=== PATIENT | female | born 1970 | race American Indian/Alaskan Native ===

== ENCOUNTER → 2018-06-25 09:52 | Outpatient (CLI) | payer OTHER, SELFPAY ==
[2018-06-25 10:37] LABS: Add Manual Diff / Slide Review NO; Basophils Percent Auto 0.6 % (0-2); Eosinophils Percent Auto 1.3 % (2-4); Hematocrit 41.8 % (36-46); Hemoglobin 13.9 g/dL (12.0-16.0); Lymphocytes Percent Auto 18.7 % (25-40); Mean Corpuscular HGB Conc 33.1 % (30-36); Mean Corpuscular Hemoglobin 26.7 PG (26-34); Mean Corpuscular Volume 80.6 fL (80-100); Monocytes Percent Auto 6.8 % (3-14); Neutrophils Absolute Auto 6300 /uL (3000-5900); Neutrophils Percent Auto 72.6 % (50-75); Platelet Count 341 X10^3/uL (150-400); Red Blood Cell Count 5.19 X10^6/uL (4.0-5.2); Red Cell Distribution Width 14.9 % (11.6-14.8); White Blood Cell Count 8.6 X10^3/uL (4.5-11.0)
[2018-06-25 10:58] LABS: Alanine Aminotransferase 30 IU/L (9-52); Albumin Globulin Ratio 1.5 (1.0-2.8); Alkaline Phosphatase 66 U/L (38-126); Amylase 40 U/L (30-110); Aspartate Aminotransferase 22 IU/L (14-36); BUN Creatinine Ratio 15.7 (6-22); Bilirubin Total 0.3 mg/dL (0.2-1.3); Blood Urea Nitrogen 11 mg/dL (7-17); Calcium 9.1 mg/dL (8.4-10.2); Carbon Dioxide 31 mmol/L (22-32); Chloride 105 mmol/L (98-107); Estimated Glomerular Filt Rate > 60.0 mL/min (>60); Globulin 2.6 g/dL (1.7-4.1); Glucose 88 mg/dL (70-100); HEMOLYSIS < 15 (0-50); Lipase 40 U/L (23-300); Potassium 4.8 mmol/L (3.4-5.1); Sodium 142 mmol/L (137-145); Total Protein 6.6 g/dL (6.3-8.2)
[2018-07-06 13:21] LABS: Urea Breath Test >18YRS NOT DETECTED
== END ==
PROVIDERS: PCP Family Medicine; Visit Provider Family Medicine
DX: R10.12 Left upper quadrant pain (principal); R10.13 Epigastric pain
CPT/HCPCS: 36415; 80053; 82150; 83013; 83690; 85025

== ENCOUNTER 2020-08-07 09:43 | Emergency (ER) | payer OTHER, SELFPAY ==
[2020-08-07] VITALS (7 sets, daily range): BP systolic 116–132; BP diastolic 56–67; PULSE 73–89; RESP 16–27; TEMP 36.6; O2SAT 98–100; BMI 44.1
--- NOTE | 2020-08-07 09:45 | ED.ABDPAIN ---
HPI - Abdominal Pain General Chief Complaint: Abdominal Pain Stated Complaint: stomach pain worsening lastnight/ no sleep Time Seen by Provider: 08/07/20 09:45 Source: patient Mode of arrival: Ambulatory Limitations: no limitations History of Present Illness HPI narrative: 49-year-old female former smoker with history of anxiety presents with a chief complaint of 3-4 days of worsening epigastric and right upper quadrant pain. She states it is significantly worse with food, drink or motion. She states it reminds her of when her gallbladder was ?acting up, prior to having it surgically removed. She denies any alcohol use. She's had no fever or chills and denies any injury, trauma, or overuse. She admits to odd urinary symptoms including the sudden urge to void with large volume or urine production. She denies radiation of her pain. She's had nausea, but denies vomiting, constipation or diarrhea. She last had tried to eat just prior to arrival, but wasn't able to have much. MD complaint: abdominal pain Onset (ago): day(s) Pain Consistency: constant Location: RUQ and epigastric Severity: severe Severity scale (1-10): 7 Quality: cramping, stabbing and aching Radiation: none Relieving factors: nothing Exacerbating factors: eating and movement Associated symptoms: nausea Related Data Home Medications Medication Instructions Recorded Confirmed lorazepam 1 mg PO BID PRN 08/07/20 08/07/20 Previous Rx's Medication Instructions Recorded hydrocodone-acetaminophen 1 tab PO Q4-6H PRN #10 tab 08/07/20 ondansetron 4 mg PO TID-QID PRN #10 tab 08/07/20 Allergies Allergy/AdvReac Type Severity Reaction Status Date / Time No Known Drug Allergies Allergy Verified 08/07/20 09:51 Review of Systems Constitutional Constitutional: Denies chills, Denies fatigue, Denies fever(s), Denies frequent falls, Denies lethargy and Denies weakness Eyes Eyes: Denies change in vision, Denies eye discharge, Denies irritation and Denies loss of vision ENT Ears, Nose, Mouth, and Throat: Denies change in voice, Denies dizziness, Denies neck pain, Denies sore throat and Denies throat swelling Cardiovascular Cardiovascular: Denies chest pain, Denies irregular heart rhythm, Denies lightheadedness, Denies palpitations, Denies dyspnea, Denies dyspnea on exertion and Denies orthopnea Respiratory Respiratory: Denies cough, Denies dyspnea, Denies dyspnea on exertion and Denies wheezing Gastrointestinal Gastrointestinal: Denies abdominal pain, Denies change in bowel habits, Denies diarrhea, Denies nausea and Denies vomiting Musculoskeletal Musculoskeletal: Denies neck pain and Denies numbness Integumentary/Breasts Skin/Breast: Denies pruritus, Denies erythema, Denies rash and Denies wounds Neurologic Neurologic: Denies behavioral changes, Denies confusion, Denies dizziness, Denies frequent falls, Denies loss of vision, Denies numbness and Denies weakness Psychiatric Psychiatric: Denies anxiety, Denies behavioral changes, Denies confusion, Denies depression, Denies homicidal ideation and Denies suicidal ideation Endocrine Endocrine: Denies fatigue, Denies flushing and Denies palpitations Hematologic/Lymphatic Hematologic/Lymphatic: Denies easy bruising Allergic/Immunologic Allergic/Immunologic: Denies urticaria, Denies throat swelling and Denies wheezing Patient History Social History Smoking Status: Former smoker Exam Narrative Exam Narrative: GENERAL: [49] year old patient appears stated age. Well-nourished, well-developed patient, in moderate distress. Anxious, clearly in pain, tearful, clutching her right upper abdomen HEAD: Atraumatic. Normocephalic. EYES: Pupils equal round and reactive. Extraocular motions intact. No scleral icterus. No injection or drainage. ENT: Nose without bleeding, purulent drainage. Throat without erythema, tonsillar hypertrophy or exudate. Airway patent. NECK: Trachea midline. Non tender CARDIOVASCULAR: Regular rate and rhythm without murmurs, gallops, or rubs. RESPIRATORY: Clear to auscultation. Breath sounds equal bilaterally. No wheezes, rales, or rhonchi. GASTROINTESTINAL: Abdomen soft, severe tenderness to palpation in the epigastric right upper quadrant, nondistended. EXTREMITIES: No edema or joint tenderness. BACK: Nontender without deformity or crepitance. No flank tenderness. NEURO: AOx3. SKIN: No rash or erythema of visible areas Initial Vital Signs Initial Vital Signs: Vital Signs Temperature 97.8 F 08/07/20 09:51 Pulse Rate 77 08/07/20 09:51 Respiratory Rate 20 08/07/20 09:51 Blood Pressure 130/65 10/27/20 09:51 Pulse Oximetry 99 10/27/20 09:51 Const General: cooperative and well developed Nutritional Appearance: well nourished [facility] Head: normocephalic and atraumatic Ears: external ears normal and TM's normal bilaterally Nose: external nose normal and No nasal discharge Face and sinus: sinuses nontender, face symmetric, no sinus tenderness and No dry mucous membranes Mouth: oral mucosae normal and moist mucous membranes Teeth and gingiva: dentition normal Throat: tonsils normal and uvula midline Eyes General: appearance normal, both eyes and all related structures Eyelids: eyelids normal Conjunctivae: conjunctivae normal Sclera: sclerae normal Pupils: PERRL EOM: EOM intact bilaterally Neck Neck: normal visual inspection, trachea midline, No lymphadenopathy, No midline deformity and No JVD Lymphatic: No lymphedema Chest Chest: normal inspection of the chest Resp Effort & Inspection: normal respiratory effort, able to speak in complete sentences, no respiratory distress and no use of accessory muscles Auscultation: clear to auscultation bilaterally, no rales, no rhonchi and no wheezes Cardio Rate: regular rate Rhythm: regular rhythm Heart Sounds: no click, no gallops, no murmurs and no rubs Pulses: normal peripheral pulses GI Inspection: non-distended Palpation: soft, no hepatosplenomegaly, No guarding, No pulsatile mass and No tender Auscultation: normal bowel sounds Back/Spine/Pelvis Back: No CVA tenderness Cervical Spine: cervical ROM normal and No pain with cervical ROM Thoracic/Lumbar Spine: thoracic and lumbar spine normal to inspection Skin General: no rashes or lesions noted, No jaundice and No petechiae Neuro General: patient alert, patient oriented x3, gait normal and no focal motor deficits Speech: speech normal Extrem General: full ROM, no clubbing, cyanosis or edema, no pedal edema and no calf tenderness Psych Appearance: well kempt Mental Status: mental status grossly normal Attitude: cooperative Thought Content: normal and suicidality Judgment: judgment good Course Orders Ordered: ED Orders 08/07/20 09:53 US abdomen limited Stat 08/07/20 10:00 Complete Blood Count AUTO DIFF Stat Comprehensive Metabolic Panel Stat Lactate (Lactic Acid) Stat Lipase Stat 08/07/20 11:20 CT abdomen pelvis w con Stat Discontinued Medications Al Hydrox/Mg Hydrox/Simethicone 20 ml/ Lidocaine HCl 15 ml 0 ml PO NOW ONE Stop: 08/07/20 12:09 Last Admin: 08/07/20 12:14 Dose: 35 ml Documented by: RANDY Hydromorphone HCl (Dilaudid) 0.5 mg IV NOW ONE Stop: 08/07/20 09:53 Last Admin: 08/07/20 10:01 Dose: 0.5 mg Documented by: RANDY Hydromorphone HCl (Dilaudid) 0.5 mg IV NOW ONE Stop: 08/07/20 11:18 Last Admin: 08/07/20 11:20 Dose: 0.5 mg Documented by: RANDY Sodium Chloride (Normal Saline 0.9%) 1,000 mls @ 1,000 mls/hr IV BOLUS ONE Stop: 08/07/20 10:51 Last Infusion: 08/07/20 11:06 Dose: 0 mls/hr Documented by: Admin: 08/07/20 10:01 Dose: 1,000 mls/hr Documented by: RANDY Pantoprazole Sodium (Protonix) 40 mg IV NOW ONE Stop: 08/07/20 09:53 Last Admin: 08/07/20 10:01 Dose: 40 mg Documented by: RANDY Reevaluation(s) Reevaluation #1: near complete resolution of symptoms after GI cocktail. Vital Signs Vital signs: Vital Signs - 8 hr 08/07/20 09:51 08/07/20 10:59 08/07/20 11:00 Temperature 97.8 F Pulse Rate 77 89 85 Respiratory Rate 20 27 H 26 H Blood Pressure 130/65 Pulse Oximetry 99 100 100 08/07/20 11:15 08/07/20 11:30 08/07/20 12:00 Temperature Pulse Rate 86 83 76 Respiratory Rate 16 25 H 24 Blood Pressure 132/60 116/58 L 116/67 Pulse Oximetry 100 99 99 08/07/20 12:30 Temperature Pulse Rate 73 Respiratory Rate 18 Blood Pressure 117/56 L Pulse Oximetry 98 MDM - Abdominal Pain Lab Data Result diagrams: 08/07/20 10:00 08/07/20 10:00 Labs: Lab Results 08/07/20 08/07/20 08/07/20 Range/Units 10:00 10:00 10:00 WBC 8.3 (4.5-11.0) X10^3/uL RBC 5.03 (4.0-5.2) X10^6/uL Hgb 12.9 (12.0-16.0) g/dL Hct 40.3 (36-46) % MCV 80.0 (80-100) fL MCH 25.6 L (26-34) PG MCHC 32.0 (30-36) % RDW 15.2 H (11.6-14.8) % Plt Count 312 (150-400) X10^3/uL Neut % (Auto) 65.1 (50-75) % Lymph % (Auto) 25.9 (25-40) % [place] % (Auto) 6.9 (3-14) % Eos % (Auto) 1.6 L (2-4) % Baso % (Auto) 0.5 (0-2) % Neut # (Auto) 5400 (1337-8133) /uL Lymph # (Auto) 2100 (1803-2116) /uL [place] # (Auto) 600 (0-900) /uL Eos # (Auto) 100 (0-450) /uL Baso # (Auto) 0 (0-100) /uL Sodium 138 (137-145) mmol/L Potassium 4.3 (3.4-5.1) mmol/L Chloride 103 (98-107) mmol/L Carbon Dioxide 33 H (22-32) mmol/L BUN 12 (7-17) mg/dL Creatinine 0.67 (0.52-1.04) mg/dL Estimated GFR > 60.0 (>60) mL/min BUN/Creatinine Ratio 17.9 (6-22) Glucose 106 H (70-100) mg/dL Lactate 1.0 (0.7-2.1) mmol/L Calcium 8.9 (8.4-10.2) mg/dL Total Bilirubin 0.4 (0.2-1.3) mg/dL AST 43 H (14-36) IU/L ALT 60 H (<35) IU/L Alkaline Phosphatase 86 (38-126) U/L Total Protein 7.0 (6.3-8.2) g/dL Albumin 4.0 (3.5-5.0) g/dL Globulin 3.0 (1.7-4.1) g/dL Albumin/Globulin Ratio 1.3 (1.0-2.8) Lipase 61 (23-300) U/L Point of care testing: Urine Dip Bedside Urine Glucose Negative Bedside Urine Bilirubin - Negative Bedside Urine Ketone - Negative Urine Specific [place] 1.010 Bedside Urine Occult Blood - Negative Bedside Urine pH 6 Bedside Urine Protein - Negative Bedside Urine Urobilinogen - Negative Bedside Urine Nitrite - Negative Bedside Urine Leukocytes - Negative Esterase Imaging Data US - abdomen: Radiologist's Impression: [address] [address] Ultrasound Report Signed Patient: Aliza Galdamez GMR#: [id number] : 1970Acct:[id number] Age/Sex: 49 / FDate of Service: 08/07/20 Loc: ED Accession Number: [id number] Procedure: US abdomen limited Ordering Provider: Eric Ma D.O. PROCEDURE: US ABDOMEN LIMITED INDICATIONS: RUQ/EPIGASTRIC PAIN TECHNIQUE: Real-time focused scanning was performed of the abdomen, with image documentation. COMPARISON: [facility], US, ABDOMEN SONOGRAM, 09/10/2014, 14:10. [facility], US, ABDOMEN SONOGRAM, 01/08/2011, 0:57. [facility], CT, CT ABDOMEN PELVIS WITH CONTRAST, 01/27/2019, 5:53. FINDINGS: The liver demonstrates normal size. The liver demonstrates generalized increased echogenicity. This decreases ultrasound sensitivity for detection of hepatic masses. The gallbladder has been removed. There is no biliary dilatation, the common bile duct measures 7 mm. No significant pancreatic abnormality is seen on these images. The visualized right kidney is unremarkable, with note made a simple cyst measuring 11 mm along the superior/anterior aspect. IMPRESSION: No imaging explanation is found for this patient's presenting symptoms. Status post cholecystectomy, without biliary dilatation. The liver demonstrates increased echogenicity. This finding is nonspecific, yet it is most commonly attributed to fatty infiltration. Dictated by: Demetrius Eaton M.D. on 08/07/2020 at 9:38 Approved by: Demetrius Eaton M.D. on 08/07/2020 at 9:41 CT scan - abdomen/pelvis: Radiologist's Impression: [address] [address] [address] Scan Report Signed Patient: Aliza Galdamez GMR#: [id number] : 1970Acct:[id number] Age/Sex: 49 / FDate of Service: 08/07/20 Loc: ED Accession Number: [id number] Procedure: CT abdomen pelvis w con Ordering Provider: Eric Ma D.O. PROCEDURE: CT ABDOMEN PELVIS W CON INDICATIONS: severe right sided pain TECHNIQUE: After the administration of intravenous contrast, 5 mm thick sections acquired from the diaphragm to the symphysis. 5 mm coronal and sagittal reformats were acquired. For radiation dose reduction, the following was used: automated exposure control, adjustment of mA and/or kV according to patient size. COMPARISON: [facility], CT, CT ABDOMEN PELVIS WITH CONTRAST, 01/27/2019, 5:53. FINDINGS: Image quality: Excellent. ABDOMEN: Lung bases: Lung bases are clear. Heart size is normal. Solid organs: Liver is normal in size and enhancement. Gallbladder is surgically absent. Biliary system is non dilated. Pancreas enhances normally. 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 Spleen is normal in size and enhancement. No adrenal nodules. Kidneys demonstrate normal size and enhancement, without hydronephrosis. Nonobstructing 3 mm calculus within the inferior pole left kidney is unchanged. No change in right superior pole renal cyst. Peritoneum and bowel: Bowel loops demonstrate normal wall thickness and caliber. No free fluid or air. Nodes and vessels: No retroperitoneal or mesenteric adenopathy by size criteria. Aorta and inferior vena cava are normal in size. Miscellaneous: No ventral hernias. PELVIS: Genitourinary: Bladder wall thickness is normal. Left ovarian cyst has increased in size, currently measuring 66 mm. Miscellaneous: No inguinal hernias or adenopathy. Bones: No suspicious bony lesions. No vertebral body compression fractures. IMPRESSION: 1. No acute process. 2. Appendix is not seen no evidence of appendicitis. 3. Nonobstructing left renal calculus. 4. Increasing left ovarian cystic focus, possibly indicating low-grade neoplasm. Nonemergent outpatient follow-up gynecological consultation and pelvic ultrasound are recommended. Dictated by: Maria E Spencer M.D. on 08/07/2020 at 11:27 Approved by: Maria E Spencer M.D. on 08/07/2020 at 11:33 [facility] Narrative Medical decision making narrative: Multiple etiologies for patient's symptoms considered including: [Biliary tree abnormality versus pancreatitis versus bowel obstruction versus musculoskeletal spasm and inflammation versus other] Patient's symptoms improved over duration of stay with above-stated therapies. Findings and discharge diagnosis discussed with patient/family followed by verbalization of understanding Return precautions discussed with patient/family whom verbalize understanding. Discharge Plan Departure Patient Disposition: Home Clinical Impression: Abdominal pain Qualifiers: Abdominal location: right upper quadrant Qualified Code(s): R10.11 - Right upper quadrant pain Discharge Date/Time: 08/07/20 13:01 Instructions: DI for Abdominal Pain-Adult Activity Restrictions/Additional Instructions: *You have been diagnosed with [right upper abdominal pain. Very reassuring lab work, ultrasound and CT scan. No significant abnormalities noted. Pain of this type and in this location is sometimes due to acid reflux or ulcers which would not show up on the testing we can do in the ER.] *What to do: *Take medications as directed. Prescription sent to [facility]. Please also consider over the counter acid reducers and avoid caffeine, nicotine, alcohol, fatty and spicy foods. *Follow up with your primary care provider in 2-3 days, call for an appointment. Let them know you were seen in the Emergency Department and that we ask that you be seen in follow up *Return to ER if you should have any new, worsening or concerning symptoms, such as [increasing pain, persistent vomiting, fever over 101 F or other bothersome symptoms] Prescriptions: New hydrocodone-acetaminophen 5-325 mg tablet 1 tab PO Q4-6H PRN (Reason: pain) Qty: 10 RF: 0 ondansetron 4 mg tablet,disintegrating 4 mg PO TID-QID PRN (Reason: nausea and vomiting) Qty: 10 RF: 0 No Action lorazepam 1 mg tablet 1 mg PO BID PRN (Reason: Anxiety) RF: 0
--- NOTE | 2020-08-07 09:53 | DI.US.S_ITS ---
PROCEDURE: US ABDOMEN LIMITED INDICATIONS: RUQ/EPIGASTRIC PAIN TECHNIQUE: Real-time focused scanning was performed of the abdomen, with image documentation. COMPARISON: [facility], US, ABDOMEN SONOGRAM, 09/10/2014, 14:10. [facility], US, ABDOMEN SONOGRAM, 01/08/2011, 0:57. [facility], CT, CT ABDOMEN PELVIS WITH CONTRAST, 01/27/2019, 5:53. FINDINGS: The liver demonstrates normal size. The liver demonstrates generalized increased echogenicity. This decreases ultrasound sensitivity for detection of hepatic masses. The gallbladder has been removed. There is no biliary dilatation, the common bile duct measures 7 mm. No significant pancreatic abnormality is seen on these images. The visualized right kidney is unremarkable, with note made a simple cyst measuring 11 mm along the superior/anterior aspect. IMPRESSION: No imaging explanation is found for this patient's presenting symptoms. Status post cholecystectomy, without biliary dilatation. The liver demonstrates increased echogenicity. This finding is nonspecific, yet it is most commonly attributed to fatty infiltration. Dictated by: Demetrius Eaton M.D. on 08/07/2020 at 9:38 Approved by: Demetrius Eaton M.D. on 08/07/2020 at 9:41
[2020-08-07] MEDS: PANTOPRAZOLE 40 MG VIAL IV (10:01)
[2020-08-07] MEDS: HYDROMORPHONE 0.5 MG INJ IV ×2 (10:01→11:20)
[2020-08-07] MEDS: SODIUM CHLORIDE 0.9% 1,000 ML 1000 ML IV (10:01)
[2020-08-07 10:06] LABS: Add Manual Diff / Slide Review NO; Basophils Absolute Auto 0 /uL (0-100); Basophils Percent Auto 0.5 % (0-2); Eosinophils Absolute Auto 100 /uL (0-450); Eosinophils Percent Auto 1.6 % (2-4); Hematocrit 40.3 % (36-46); Hemoglobin 12.9 g/dL (12.0-16.0); Lymphocytes Absolute Auto 2100 /uL (1100-4500); Lymphocytes Percent Auto 25.9 % (25-40); Mean Corpuscular Hemoglobin 25.6 PG (26-34); Monocytes Absolute Auto 600 /uL (0-900); Monocytes Percent Auto 6.9 % (3-14); Neutrophils Absolute Auto 5400 /uL (1500-7000); Neutrophils Percent Auto 65.1 % (50-75); Platelet Count 312 X10^3/uL (150-400); Red Blood Cell Count 5.03 X10^6/uL (4.0-5.2); Red Cell Distribution Width 15.2 % (11.6-14.8); White Blood Cell Count 8.3 X10^3/uL (4.5-11.0)
--- NOTE | 2020-08-07 10:09 | PC.NURSE ---
patient arrived tearful and in obvious discomfort having difficulty moving and positioning self on stretcher without increasing pain. States she has had this for a few days and states today is worse than the others. reports no gallbladder or appendix. NPO since 829 when she had toast and a cookie. Dilaudid given. patient states her daughter is here to give her a ride home.
[2020-08-07 10:17] LABS: Alanine Aminotransferase 60 IU/L (<35); Albumin Globulin Ratio 1.3 (1.0-2.8); Alkaline Phosphatase 86 U/L (38-126); Aspartate Aminotransferase 43 IU/L (14-36); BUN Creatinine Ratio 17.9 (6-22); Bilirubin Total 0.4 mg/dL (0.2-1.3); Blood Urea Nitrogen 12 mg/dL (7-17); Calcium 8.9 mg/dL (8.4-10.2); Carbon Dioxide 33 mmol/L (22-32); Chloride 103 mmol/L (98-107); Estimated Glomerular Filt Rate > 60.0 mL/min (>60); Glucose 106 mg/dL (70-100); HEMOLYSIS < 15 (0-50); Lipase 61 U/L (23-300); Potassium 4.3 mmol/L (3.4-5.1); Sodium 138 mmol/L (137-145)
--- NOTE | 2020-08-07 11:20 | DI.CT.S_ITS ---
PROCEDURE: CT ABDOMEN PELVIS W CON INDICATIONS: severe right sided pain TECHNIQUE: After the administration of intravenous contrast, 5 mm thick sections acquired from the diaphragm to the symphysis. 5 mm coronal and sagittal reformats were acquired. For radiation dose reduction, the following was used: automated exposure control, adjustment of mA and/or kV according to patient size. COMPARISON: [facility], CT, CT ABDOMEN PELVIS WITH CONTRAST, 01/27/2019, 5:53. FINDINGS: Image quality: Excellent. ABDOMEN: Lung bases: Lung bases are clear. Heart size is normal. Solid organs: Liver is normal in size and enhancement. Gallbladder is surgically absent. Biliary system is non dilated. Pancreas enhances normally. 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 Spleen is normal in size and enhancement. No adrenal nodules. Kidneys demonstrate normal size and enhancement, without hydronephrosis. Nonobstructing 3 mm calculus within the inferior pole left kidney is unchanged. No change in right superior pole renal cyst. Peritoneum and bowel: Bowel loops demonstrate normal wall thickness and caliber. No free fluid or air. Nodes and vessels: No retroperitoneal or mesenteric adenopathy by size criteria. Aorta and inferior vena cava are normal in size. Miscellaneous: No ventral hernias. PELVIS: Genitourinary: Bladder wall thickness is normal. Left ovarian cyst has increased in size, currently measuring 66 mm. Miscellaneous: No inguinal hernias or adenopathy. Bones: No suspicious bony lesions. No vertebral body compression fractures. IMPRESSION: 1. No acute process. 2. Appendix is not seen no evidence of appendicitis. 3. Nonobstructing left renal calculus. 4. Increasing left ovarian cystic focus, possibly indicating low-grade neoplasm. Nonemergent outpatient follow-up gynecological consultation and pelvic ultrasound are recommended. Dictated by: Maria E Spencer M.D. on 08/07/2020 at 11:27 Approved by: Maria E Spencer M.D. on 08/07/2020 at 11:33
--- NOTE | 2020-08-07 11:21 | PC.NURSE ---
patient returned from CT with increased pain. Reports little relief from dilaudid. Verbal order received for Dilaudid 0.5mg IV
[2020-08-07] MEDS: MAG HYDROX/ALUMINUM/SIMETH SUS 20 ML, LIDOCAINE VISCOUS 2% 15 ML PO (12:14)
== END 2020-08-07 13:01 | disposition home or self-care (01) ==
PROVIDERS: Emergency Provider Emergency Medicine
DX: R10.11 Right upper quadrant pain (principal); R10.13 Epigastric pain; R11.0 Nausea; F41.9 Anxiety disorder, unspecified
CPT/HCPCS: 36415; 74177; 76705; 80053; 81003; 83605; 83690; 85025; 96361; 96374; 96375; 96376; 99284; C9113; J1170; Q9967

== ENCOUNTER 2020-11-21 22:22 | Emergency (ER) | payer OTHER, SELFPAY ==
[2020-11-21 22:27] VITALS: BP 135/73; PULSE 74; RESP 14; TEMP 36.6; O2SAT 99; BMI 40.9
--- NOTE | 2020-11-21 22:36 | DI.US.S_ITS ---
PROCEDURE: US PERIPH VENOUS LOW EXTREM LT INDICATIONS: left leg pain,swelling,tight. TECHNIQUE: Real-time imaging, as well as color and pulse Doppler interrogation, were performed of the lower extremity deep veins from the inguinal ligament to the popliteal fossa. COMPARISON: None. FINDINGS: The common femoral, femoral and popliteal veins are normally compressible, and free of intraluminal thrombus. Color and pulse Doppler demonstrate normal phasic intraluminal flow. There is normal augmentation response to distal compression maneuver. IMPRESSION: Negative for deep venous thrombosis of the left lower extremity. No significant discrepancy with the personalization specialist radiology preliminary report. Dictated by: Maximilian Reeves M.D. on 11/22/2020 at 7:05 Approved by: Maximilian Reeves M.D. on 11/22/2020 at 7:05
--- NOTE | 2020-11-22 00:19 | PC.NURSE ---
Pt reports leg swelling and pain started after sitting for long periods of time with family member x four days. Also reports shortness of breath since using our fireplace more recently.
--- NOTE | 2020-11-22 01:00 | ED_ITS ---
HPI - Extremity Problem General Chief complaint: Extremity Problem,Nontraumatic Stated complaint: lower leg lump and pain Time Seen by Provider: 11/22/20 00:55 Source: patient Mode of arrival: Ambulatory Limitations: no limitations History of Present Illness HPI Narrative: Patient is a 50-year-old female who presents with feet lump on her left lower leg. She says over the past couple of days she has noticed incre ased lump on her left leg and her left wrist. They are not red or erythematous she does not have any pain when she walks or moves her hand. No history of blood clots. She denies any fever chills or shortness of breath. Worried about a blood clot. MD Complaint: extremity swelling Related Data Home Medications Medication Instructions Recorded Confirmed lorazepam 1 mg PO BID PRN 08/07/20 08/07/20 Previous Rx's Medication Instructions Recorded hydrocodone-acetaminophen 1 tab PO Q4-6H PRN #10 tab 08/07/20 ondansetron 4 mg PO TID-QID PRN #10 tab 08/07/20 Allergies Allergy/AdvReac Type Severity Reaction Status Date / Time No Known Drug Allergies Allergy Verified 11/21/20 22:27 Review of Systems Review of Systems Narrative: GENERAL: Denies chills, fatigue, malaise, fever, sweats, travel HEENT: Denies sinus pain, ear pain, sore throat, difficulty swallowing, neck pain RESPIRATORY: Denies dyspnea, cough, wheezing, hemoptysis, sputum. CARDIOVASCULAR: Denies chest pain, palpitations, orthopnea, edema GASTROINTESTINAL: Denies nausea, vomiting, abdominal pain, diarrhea, constipation, melena. : Denies dysuria, frequency, incontinence, hematuria, urinary retention, flank pain. MUSCULOSKELETAL: See HPI SKIN: No rash, no erythema, no pruritus NEUROLOGIC: Denies weakness, dizziness, headache, numbness, change in speech, confusion PSYCHIATRIC: No concerning psychosocial issues. 12 point review of systems is negative except for those stated above and HPI Patient History Social History Smoking Status: Current some day smoker Smoking Status: Current some day smoker alcohol intake frequency: holidays/special occasions only Substance Use Type: does not use Exam Initial Vital Signs Initial Vital Signs: Vital Signs Temperature 97.9 F 11/21/20 22:27 Pulse Rate 74 11/21/20 22:27 Respiratory Rate 14 11/21/20 22:27 Blood Pressure 135/73 11/21/20 22:27 Pulse Oximetry 99 11/21/20 22:27 GENERAL: Well-appearing, well-nourished and in no acute distress. CARDIOVASCULAR: peripheral pulses in tact, cap refill <2 sec RESPIRATORY: No respiratory distress, speaks in full sentences without difficulty EXTREMITIES: Normal range of motion, no clubbing or edema. Neurovascularly intact Left leg just above the lateral malleoli there is mild swelling. No erythema no calf pain or tenderness calf is soft. No significant swelling. NEUROLOGICAL: Cranial nerves II through XII grossly intact. Normal gait and speech. SKIN: Warm, dry, no petechiae, no rashes or lesions. Mild swelling on left dorsal side of her hand is well there is no erythema no abscess no track marcos Course Orders Ordered: ED Orders 11/21/20 22:36 US periph venous low extrem lt Stat Vital Signs Vital signs: Vital Signs - 8 hr 11/21/20 22:27 11/22/20 01:11 Temperature 97.9 F Pulse Rate 74 78 Respiratory Rate 14 14 Blood Pressure 135/73 155/78 H Pulse Oximetry 99 99 MDM - Extremity (Nontraumatic) Imaging Data US - DVT: Radiologist's Impression: Negative for DVT MDM Narrative Medical decision making narrative: The patient is not having pain along her deep veins. She does have some palpable swelling noted just superior her lateral malleoli. However there is no abscess or injury. She is able to ambulate him any difficulty. She has no calf pain. At this time I see no need for any further imaging. Recommend ibuprofen and ice as needed Discharge Plan Departure Patient Disposition: Home Clinical Impression: Left leg pain Instructions: DI for Peripheral Edema-Unilateral Activity Restrictions/Additional Instructions: *You have been diagnosed with left leg pain *What to do: At this time you do not have a DVT. I recommend ice and elevate and monitoring the areas of swelling *Continue to take medications as directed Ibuprofen 600 mg every 6-8 hours if needed for [id number] pain *Follow up with your primary care provider in 2-3 days *Return to ER if you should have increasing swelling, pain, redness, fever or any new, worsening or concerning symptoms Prescriptions: No Action lorazepam 1 mg tablet 1 mg PO BID PRN (Reason: Anxiety) RF: 0 hydrocodone-acetaminophen 5-325 mg tablet 1 tab PO Q4-6H PRN (Reason: pain) Qty: 10 RF: 0 ondansetron 4 mg tablet,disintegrating 4 mg PO TID-QID PRN (Reason: nausea and vomiting) Qty: 10 RF: 0
[2020-11-22 01:11] VITALS: BP 155/78; PULSE 78; RESP 14; O2SAT 99
== END 2020-11-22 01:14 | disposition home or self-care (01) ==
PROVIDERS: Emergency Provider Emergency Medicine
DX: M79.605 Pain in left leg (principal); R22.32 Localized swelling, mass and lump, left upper limb; M79.89 Other specified soft tissue disorders
CPT/HCPCS: 93971; 99283

== ENCOUNTER 2023-09-10 06:51 | Emergency (ER) | payer OTHER, SELFPAY ==
[2023-09-10] VITALS (7 sets, daily range): BP systolic 121–172; BP diastolic 59–80; PULSE 75–86; RESP 16; TEMP 36.6; O2SAT 97–98; BMI 44.6
[2023-09-10 07:13] LABS: Appearance Urine UA CLEAR; Bilirubin Urine UA NEGATIVE (NEGATIVE); Color Urine UA YELLOW; Glucose Urine UA NEGATIVE (Negative); Ketones Urine UA NEGATIVE (NEGATIVE); Leukocyte Esterase Urine UA NEGATIVE (NEGATIVE); Nitrite Urine UA NEGATIVE (Negative); Occult Blood Urine UA NEGATIVE (Negative); Protein Urine UA NEGATIVE (Negative); Urobilinogen Urine UA 0.2 E.U./dL (0.2)
[2023-09-10 07:16] LABS: Bacteria Urine None Seen; Culture Indicated Urine Cult Not Indicated; RBC Urine None Seen (0-5/HPF); Squamous Epithelial Cell Urine 0-1 /HPF (0-5/HPF); WBC Urine None Seen (0-5/HPF)
[2023-09-10] MEDS: ACETAMINOPHEN IV 1,000 MG/100 ML VIAL 400 MG IV (08:06)
[2023-09-10] MEDS: DEXAMETHASONE 10 MG/ML VIAL IV (08:07)
[2023-09-10] MEDS: methocarbamoL 500 MG TABLET 750 MG PO (08:07)
[2023-09-10] MEDS: LIDOCAINE 5% PATCH 1 EACH TOP (08:07)
[2023-09-10] MEDS: KETOROLAC 30 MG/ML VIAL 15 MG IV (08:07)
[2023-09-10 08:19] LABS: Add Manual Diff / Slide Review NO; Basophils Absolute Auto 100 /uL (0-100); Basophils Percent Auto 0.8 % (0-2); Eosinophils Absolute Auto 300 /uL (0-450); Eosinophils Percent Auto 2.2 % (2-4); Hemoglobin 12.4 g/dL (12.0-16.0); Lymphocytes Absolute Auto 2000 /uL (1100-4500); Lymphocytes Percent Auto 14.8 % (25-40); Mean Corpuscular HGB Conc 32.6 % (30-36); Mean Corpuscular Hemoglobin 24.9 PG (26-34); Mean Corpuscular Volume 76.3 fL (80-100); Monocytes Absolute Auto 800 /uL (0-900); Monocytes Percent Auto 6.1 % (3-14); Neutrophils Absolute Auto 10100 /uL (1500-7000); Neutrophils Percent Auto 76.1 % (50-75); Platelet Count 396 X10^3/uL (150-400); Red Blood Cell Count 4.98 X10^6/uL (4.0-5.2); White Blood Cell Count 13.3 X10^3/uL (4.5-11.0)
--- NOTE | 2023-09-10 08:27 | ED.BACK ---
HPI - Back Pain/Injury General Chief Complaint: Back Pain/Injury Stated Complaint: Back pain, headache, sore throat possible uti Time Seen by Provider: 09/10/23 06:51 Source: patient History of Present Illness HPI Narrative: 52-year-old female presents for lower back pain, frequent urination, and urinary frequency. Triage note lists headache and sore throat, patient denies this on my evaluation. Patient states that several days ago she noticed a twinge in her back but did not think anything of it. After several days of meetings her back is now much more uncomfortable and is causing her difficulty sleeping at night. She has tried Tylenol and Motrin without significant relief. She also states that she has a small wound on her anterior abdomen. She is been placing Neosporin on the wound but she is concerned that it is not healing correctly and it was causing her back pain and her urinary frequency. Denies fevers. Related Data Home Medications Medication Instructions Recorded Confirmed lorazepam 1 mg tablet 1 mg PO BID PRN Anxiety 08/07/20 08/07/20 Previous Rx's Medication Instructions Recorded hydrocodone 5 mg-acetaminophen 325 1 tab PO Q4-6H PRN pain #10 tabs 08/07/20 mg tablet ondansetron 4 mg disintegrating 4 mg PO TID-QID PRN nausea and 08/07/20 tablet vomiting #10 tabs methocarbamol 500 mg tablet 500 mg PO TID #60 tabs 09/10/23 Allergies Allergy/AdvReac Type Severity Reaction Status Date / Time No Known Drug Allergies Allergy Verified 11/21/20 22:27 Review of Systems Review of Systems Narrative: Negative except as noted above Patient History Social History Smoking Status: Current some day smoker Smoking Status: Current some day smoker alcohol intake frequency: holidays/special occasions only Substance Use Type: does not use Exam Initial Vital Signs Initial Vital Signs: Vital Signs Pulse Rate 83 09/10/23 07:00 Blood Pressure 172/75 H 09/10/23 07:00 Pulse Oximetry 98 09/10/23 07:00 Const: Awake, alert, uncomfortable, in pain, nontoxic Cardiac: regular rate, regular rhythm RESP: unlabored, clear bilaterally, no wheezing GI: Atraumatic, soft, nontender, nondistended, no rebound, no guarding MSK back: Atraumatic, no midline vertebral tenderness, lumbar paraspinal and gluteal muscle tenderness to palpation Skin: Warm, Dry, intact, 1cm scab over anterior abdomen just superior to umbilicus Neuro: AO x3, CN II-XII grossly intact, moves all extremities Psych: Anxious affect, mood normal, not suicidal, not homicidal Course Orders Ordered: ED Orders 09/10/23 06:58 Urinalysis and Microscopic Stat 09/10/23 08:07 Complete Blood Count AUTO DIFF Stat Comprehensive Metabolic Panel Stat Discontinued Medications Dexamethasone (Dexamethasone 10 Mg/Ml Vial) 10 mg IV NOW ONE Stop: 09/10/23 07:58 Last Admin: 09/10/23 08:07 Dose: 10 mg Documented By: RB Acetaminophen (Ofirmev) 1,000 mg in 100 mls @ 400 mls/hr IV NOW ONE Stop: 09/10/23 08:11 Last Infusion: 09/10/23 08:45 Dose: Infused Documented By: Admin: 09/10/23 08:06 Dose: 400 mls/hr Documented By: RB Ketorolac Tromethamine (Ketorolac 30 Mg/Ml Vial) 15 mg IV NOW ONE Stop: 09/10/23 07:58 Last Admin: 09/10/23 08:07 Dose: 15 mg Documented By: RB Lidocaine (Lidocaine 5% Patch) 1 each TOP NOW ONE Stop: 09/10/23 07:58 Last Admin: 09/10/23 08:07 Dose: 1 each Documented By: RB Methocarbamol (Methocarbamol 500 Mg Tablet) 750 mg PO NOW ONE Stop: 09/10/23 07:58 Last Admin: 09/10/23 08:07 Dose: 750 mg Documented By: RB Vital Signs Vital signs: Vital Signs - 8 hr 09/10/23 07:00 09/10/23 07:00 09/10/23 07:04 Temperature 97.9 F Pulse Rate 83 84 Respiratory Rate 16 Blood Pressure 172/75 H 172/75 H Pulse Oximetry 98 98 Oxygen Delivery Method Room Air 09/10/23 07:30 09/10/23 07:30 09/10/23 08:00 Temperature Pulse Rate 76 Respiratory Rate Blood Pressure 143/73 H 145/80 H Pulse Oximetry 97 Oxygen Delivery Method 09/10/23 08:00 09/10/23 08:30 09/10/23 08:30 Temperature Pulse Rate 86 75 Respiratory Rate Blood Pressure 121/59 L Pulse Oximetry 97 97 Oxygen Delivery Method 09/10/23 09:00 09/10/23 09:00 09/10/23 09:28 Temperature Pulse Rate 78 Respiratory Rate Blood Pressure 124/59 L 128/64 Pulse Oximetry 98 Oxygen Delivery Method 09/10/23 09:28 Temperature Pulse Rate 82 Respiratory Rate Blood Pressure Pulse Oximetry 98 Oxygen Delivery Method MDM - Back Pain/Injury Differential Diagnosis Differential diagnosis: Likely lumbar radiculopathy, sciatica and strain of lumbar region Lab Data 09/10/23 08:07 09/10/23 08:07 Labs: Lab Results 09/10/23 09/10/23 Range/Units 06:58 08:07 WBC 13.3 H (4.5-11.0) X10^3/uL RBC 4.98 (4.0-5.2) X10^6/uL Hgb 12.4 (12.0-16.0) g/dL Hct 38.0 (36-46) % MCV 76.3 L (80-100) fL MCH 24.9 L (26-34) PG MCHC 32.6 (30-36) % RDW 15.0 H (11.6-14.8) % Plt Count 396 (150-400) X10^3/uL Neut % (Auto) 76.1 H (50-75) % Lymph % (Auto) 14.8 L (25-40) % [place] % (Auto) 6.1 (3-14) % Eos % (Auto) 2.2 (2-4) % Baso % (Auto) 0.8 (0-2) % Neut # (Auto) 27468 H (8145-0995) /uL Lymph # (Auto) 2000 (1474-6929) /uL [place] # (Auto) 800 (0-900) /uL Eos # (Auto) 300 (0-450) /uL Baso # (Auto) 100 (0-100) /uL Sodium 138 (137-145) mmol/L Potassium 4.1 (3.4-5.1) mmol/L Chloride 104 (98-107) mmol/L Carbon Dioxide 28 (22-32) mmol/L BUN 11 (7-17) mg/dL Creatinine 0.61 (0.52-1.04) mg/dL Estimated GFR > 60 (>60) mL/min BUN/Creatinine Ratio 18.0 (6-22) Glucose 103 H (70-100) mg/dL Calcium 9.5 (8.4-10.2) mg/dL Total Bilirubin 0.6 (0.2-1.3) mg/dL AST 36 (14-36) IU/L ALT 40 H (<35) IU/L Alkaline Phosphatase 98 (38-126) U/L Total Protein 7.8 (6.3-8.2) g/dL Albumin 4.3 (3.5-5.0) g/dL Globulin 3.5 (1.7-4.1) g/dL Albumin/Globulin Ratio 1.2 (1.0-2.8) Urine Color Yellow Urine Appearance Clear Urine pH 7.0 (4.5-8.0) Ur Specific [place] 1.010 (1.000-1.035) Urine Protein Negative (Negative) Urine Glucose (UA) Negative (Negative) g/dL Urine Ketones Negative (NEGATIVE) Urine Occult Blood Negative (Negative) Urine Nitrate Negative (Negative) Urine Bilirubin Negative (NEGATIVE) Urine Urobilinogen 0.2 (0.2) E.U./dL Ur Leukocyte Esterase Negative (NEGATIVE) Urine RBC None seen (0-5/HPF) Urine WBC None seen (0-5/HPF) Ur Squamous Epith Cells 0-1 /hpf (0-5/HPF) Urine Bacteria None seen (None) Ur Culture Indicated? Cult not indicated MDM Narrative Medical decision making narrative: Well-appearing patient with the above complaints. She states she is very concerned that the wound on her abdomen is causing her back pain and urinary frequency. The aforementioned wound appears to be a small lesion just above the umbilicus that is in advanced stages of healing. Lumbar pain is likely musculoskeletal as it is not midline and there are no signs or symptoms of cauda equina. Laboratory work is reviewed, unremarkable. No hyperglycemia, urine is negative for signs of infection. Patient was given nonnarcotic analgesia with improvement in pain. Counseled on gentle stretching exercises, encouraged to continue taking Tylenol and Motrin as needed for pain, she may apply ice and heat as desired for comfort, and recommended gentle stretching exercises. Discharge Plan Departure Patient Disposition: Home Clinical Impression: Lumbar back pain, Urinary frequency Instructions: DI for Back Spasm Prescriptions: New methocarbamol 500 mg tablet 500 mg PO TID Qty: 60 0RF No Action lorazepam 1 mg tablet 1 mg PO BID PRN (Reason: Anxiety) Patient Comments: TAKE 1 TABLET BY MOUTH NEEDED TWICE DAILY hydrocodone-acetaminophen 5-325 mg tablet 1 tab PO Q4-6H PRN (Reason: pain) Qty: 10 0RF ondansetron 4 mg tablet,disintegrating 4 mg PO TID-QID PRN (Reason: nausea and vomiting) Qty: 10 0RF Stand Alone Forms: Patient Portal/API
[2023-09-10 08:29] LABS: Alanine Aminotransferase 40 IU/L (<35); Albumin 4.3 g/dL (3.5-5.0); Albumin Globulin Ratio 1.2 (1.0-2.8); Alkaline Phosphatase 98 U/L (38-126); Aspartate Aminotransferase 36 IU/L (14-36); Bilirubin Total 0.6 mg/dL (0.2-1.3); Blood Urea Nitrogen 11 mg/dL (7-17); Calcium 9.5 mg/dL (8.4-10.2); Carbon Dioxide 28 mmol/L (22-32); Chloride 104 mmol/L (98-107); Estimated Glomerular Filt Rate > 60 mL/min (>60); Globulin 3.5 g/dL (1.7-4.1); Glucose 103 mg/dL (70-100); HEMOLYSIS < 15 (0-50); Potassium 4.1 mmol/L (3.4-5.1); Sodium 138 mmol/L (137-145); Total Protein 7.8 g/dL (6.3-8.2)
== END 2023-09-10 09:32 | disposition home or self-care (01) ==
PROVIDERS: Emergency Provider Emergency Medicine
DX: M54.50 Low back pain, unspecified (principal); R35.0 Frequency of micturition
CPT/HCPCS: 80053; 81001; 85025; 96374; 96375; 99283; 99284; J0131; J1100; J1885

== ENCOUNTER 2023-09-12 00:38 | Emergency (ER) | payer OTHER, SELFPAY ==
[2023-09-12 00:41] VITALS: BP 156/68; PULSE 70; RESP 18; TEMP 36.8; O2SAT 97; BMI 44.6
--- NOTE | 2023-09-12 01:05 | ED_ITS ---
HPI - General Adult General Chief complaint: Upper Respiratory Symptoms Stated complaint: Chest pain/sob/sick Time Seen by Provider: 09/12/23 00:48 Source: patient Mode of arrival: Ambulatory Limitations: no limitations History of Present Illness HPI narrative: 52-year-old female with history of ADHD and anxiety who presents with complaint of generally feeling unwell, muscle aches, nasal congestion and cough, headache, no neck pain. Patient denies chest pain or pressure. No shortness of breath. No nausea or vomiting. No diarrhea or constipation. She describes some dysuria but no longer having frequency. Patient states she received 3023 that time was treated with muscle relaxer for low back pain urine was negative. Patient was seen at this when admission clinic earlier today had swab for COVID/flu/RSV and urine which showed possible infection and has had 2 doses of oral antibiotic. Patient states she is had Tylenol and ibuprofen through the last several days with reported fevers. Patient states she is starting to develop a cough and some chest congestion. States she was just feeling very achy all over and was not sure if that was normal throat was happening so presents. She states she does feel very anxious this evening. No known drug allergies. No tobacco, alcohol or illicit. No known sick contacts. Patient defers respiratory panel. Related Data Home Medications Medication Instructions Recorded Confirmed lorazepam 1 mg tablet 1 mg PO BID PRN Anxiety 08/07/20 08/07/20 Previous Rx's Medication Instructions Recorded hydrocodone 5 mg-acetaminophen 325 1 tab PO Q4-6H PRN pain #10 tabs 08/07/20 mg tablet ondansetron 4 mg disintegrating 4 mg PO TID-QID PRN nausea and 08/07/20 tablet vomiting #10 tabs methocarbamol 500 mg tablet 500 mg PO TID #60 tabs 09/10/23 Allergies Allergy/AdvReac Type Severity Reaction Status Date / Time No Known Drug Allergies Allergy Verified 09/12/23 00:41 Review of Systems Review of Systems ROS Unobtainable: All systems reviewed & are unremarkable except as noted in HPI and below Patient History Social History Smoking Status: Current some day smoker Smoking Status: Current some day smoker alcohol intake frequency: holidays/special occasions only Substance Use Type: does not use Exam Narrative Exam Narrative: GEN: well nourished, obese female, alert and oriented x 3, patient appears to be in mild distress. HEENT: Atraumatic, pupils are equal round reactive to light, no photophobia. Extraocular movements are intact, nares are clear, TMs are clear with no fluid, there is no conjunctival pallor. Throat is clear without any exudates, erythema, tonsillar enlargement or uvular deviation, no meningeal signs. HEART: Regular rate and rhythm without murmur, clicks, rubs. LUNGS:Lungs clear to auscultation, no wheezes, rales, crackles, chest moves symmetrically, no tachypnea or accessory muscle use. Speaks in full sentences. ABD:bowel sounds normal, soft, non-tender, no guarding, rebound, rigidity, no masses noted, no hepatosplenomegaly :No CVA tenderness MSCL: Non-tender, no muscle atrophy, muscles strength 5/5 upper and lower extremities, full range of motion, normal gait NEURO:CN 2-12 intact, sensation normal SKIN: No rash, erythema or other skin changes besides of small 0.5 cm lid ulcer on her abdomen in the periumbilical region. There is a small amount of pink granulation tissue. There is no surrounding erythema, swelling or redness. No drainage. No foul odor. Patient states it has been there several weeks is decreasing in size over time. Initial Vital Signs Initial Vital Signs: Vital Signs Temperature 98.3 F 09/12/23 00:41 Pulse Rate 70 09/12/23 00:41 Respiratory Rate 18 09/12/23 00:41 Blood Pressure 156/68 H 09/12/23 00:41 Pulse Oximetry 97 09/12/23 00:41 Oxygen Delivery Method Room Air 09/12/23 00:41 Course Orders Ordered: ED Orders 09/12/23 01:03 Chest [XR chest 2V] Stat UA dip and micro [Urinalysis and Microscopic] Stat 09/12/23 01:20 CBC Auto Diff [Complete Blood Count AUTO DIFF] Stat CMP [Comprehensive Metabolic Panel] Stat Lipase Stat Discontinued Medications Sodium Chloride (Normal Saline 0.9%) 1,000 mls @ 1,000 mls/hr IV BOLUS ONE Stop: 09/12/23 02:02 Last Infusion: 09/12/23 02:30 Dose: Infused Documented By: Admin: 09/12/23 01:29 Dose: 1,000 mls/hr Documented By: LUDY Ketorolac Tromethamine (Ketorolac 30 Mg/Ml Vial) 15 mg IV NOW ONE Stop: 09/12/23 01:04 Last Admin: 09/12/23 01:28 Dose: 15 mg Documented By: LUDY Vital Signs Vital signs: Vital Signs - 8 hr 09/12/23 00:41 09/12/23 02:45 Temperature 98.3 F Pulse Rate 70 72 Respiratory Rate 18 18 Blood Pressure 156/68 H Pulse Oximetry 97 98 Oxygen Delivery Method Room Air Room Air Medical Decision Making Lab Data 09/12/23 01:20 09/12/23 01:20 Labs: Lab Results 09/12/23 Range/Units 01:20 WBC 14.4 H (4.5-11.0) X10^3/uL RBC 4.59 (4.0-5.2) X10^6/uL Hgb 11.3 L (12.0-16.0) g/dL Hct 35.0 L (36-46) % MCV 76.2 L (80-100) fL MCH 24.7 L (26-34) PG MCHC 32.4 (30-36) % RDW 15.0 H (11.6-14.8) % Plt Count 335 (150-400) X10^3/uL Neut % (Auto) 75.2 H (50-75) % Lymph % (Auto) 15.2 L (25-40) % [place] % (Auto) 8.3 (3-14) % Eos % (Auto) 0.4 L (2-4) % Baso % (Auto) 0.9 (0-2) % Neut # (Auto) 42507 H (2242-2797) /uL Lymph # (Auto) 2200 (2177-5412) /uL [place] # (Auto) 1200 H (0-900) /uL Eos # (Auto) 100 (0-450) /uL Baso # (Auto) 100 (0-100) /uL Sodium 135 L (137-145) mmol/L Potassium 4.0 (3.4-5.1) mmol/L Chloride 107 (98-107) mmol/L Carbon Dioxide 22 (22-32) mmol/L BUN 11 (7-17) mg/dL Creatinine 0.65 (0.52-1.04) mg/dL Estimated GFR > 60 (>60) mL/min BUN/Creatinine Ratio 16.9 (6-22) Glucose 106 H (70-100) mg/dL Calcium 8.7 (8.4-10.2) mg/dL Total Bilirubin 0.5 (0.2-1.3) mg/dL AST 102 H (14-36) IU/L ALT 152 H (<35) IU/L Alkaline Phosphatase 96 (38-126) U/L Total Protein 6.8 (6.3-8.2) g/dL Albumin 3.6 (3.5-5.0) g/dL Globulin 3.2 (1.7-4.1) g/dL Albumin/Globulin Ratio 1.1 (1.0-2.8) Lipase 55 (23-300) U/L Urine Color Yellow Urine Appearance Clear Urine pH 6.5 (4.5-8.0) Ur Specific [place] 1.020 (1.000-1.035) Urine Protein Negative (Negative) Urine Glucose (UA) Negative (Negative) g/dL Urine Ketones Negative (NEGATIVE) Urine Occult Blood Trace-intact (Negative) Urine Nitrate Negative (Negative) Urine Bilirubin Negative (NEGATIVE) Urine Urobilinogen 1.0 (0.2) E.U./dL Ur Leukocyte Esterase Negative (NEGATIVE) Urine RBC 0-1/hpf (0-5/HPF) Urine WBC None seen (0-5/HPF) Ur Squamous Epith Cells 1-5 /hpf (0-5/HPF) Urine Bacteria Few (2-10) H (None) Ur Culture Indicated? Cult not indicated Imaging Data Chest x-ray: Radiologist's Impression: [address] [address] XRay Report Signed Patient: Aliza Galdamez MR#: [id number] : 1970 Acct:[id number] Age/Sex: 52 / F Date of Service: 09/12/23 Loc: ED Accession Number: [id number] Procedure: XR chest 2V Ordering Provider: Janey Collins D.O. PROCEDURE: XR CHEST 2V INDICATIONS: cough, fever, muscle aches TECHNIQUE: 2 views of the chest were acquired. COMPARISON: [facility], , XR CHEST 1 VIEW, 09/14/2021, 8:43. FINDINGS: Surgical changes and devices: None. Lungs and pleura: Lungs are clear. No pleural effusions or pneumothorax. Mediastinum: Mediastinal contours are normal. Heart size is normal. Bones and chest wall: No suspicious bony abnormalities. Soft tissues appear unremarkable. IMPRESSION: No acute cardiopulmonary abnormality is seen. Dictated by: Willis Wong M.D. on 09/12/2023 at 1:37 Approved by: Willis Wong M.D. on 09/12/2023 at 1:38 [facility] Narrative Medical decision making narrative: 52-year-old seen here on 09/10/2023 for low back pain urinary frequency had a negative urine at that time was treated with methocarbamol but has had persistent discomfort some fevers and chills was seen at this when admission clinic had RSV/flu and COVID swab by report which was negative and a urine sample which was found to be positive had had 2 doses of oral antibiotic. Patient's does have myalgias, headache generalized discomfort. Some dry cough discussed repeating respiratory panel but patient defers. We will repeat urine will obtain some baseline labs including CBC, CMP and lipase and CXR. Patient's vitals are very appropriate so sepsis labs were not obtained. Patient received fluids, Toradol on recheck patient states she is feeling much improved. We did review her findings from today. She is had 2 doses of antibiotics she is not had a full 24 hours of them so far. Discussed would see how she responds to her medication. She does have generalized body aches, headache changes consistent with possible influenza but did not do respiratory panel today as per patient request. Workup shows white count slightly increased from 13-14. Hemoglobin 11.3 was 12.4 on 09/10. Microcytic with normal platelets of 335 leftward shift. Labs show a sodium 135 normal creatinine, electrolytes, glucose of 106 AST ALT is 102 and 152 with normal bilirubin and lipase. Patient's ALT and AST were in the 50 range on last visit. Urine does show bacteria, trace blood 0-1 RBCs. 1-5 squamous epithelial. Patient has been on oral antibiotics. Chest x-ray shows no acute change Discussed all findings, patient feels comfortable returning home discussed return precautions. All questions answered. Discharge Plan Departure Patient Disposition: Home Clinical Impression: Cough Activity Restrictions/Additional Instructions: Follow up for recheck as needed. Continue with medications you have been prescribed including Tylenol and ibuprofen. Take your antibiotics until completed. Please return if you are having worsening symptoms, persistent fevers, worsening chest pain or shortness of breath, passing out, persistent vomiting, black or bloody stools or other new or concerning changes. Prescriptions: No Action lorazepam 1 mg tablet 1 mg PO BID PRN (Reason: Anxiety) Patient Comments: TAKE 1 TABLET BY MOUTH NEEDED TWICE DAILY hydrocodone-acetaminophen 5-325 mg tablet 1 tab PO Q4-6H PRN (Reason: pain) Qty: 10 0RF ondansetron 4 mg tablet,disintegrating 4 mg PO TID-QID PRN (Reason: nausea and vomiting) Qty: 10 0RF methocarbamol 500 mg tablet 500 mg PO TID Qty: 60 0RF Stand Alone Forms: Patient Portal/API
[2023-09-12] MEDS: KETOROLAC 30 MG/ML VIAL 15 MG IV (01:28)
[2023-09-12] MEDS: SODIUM CHLORIDE 0.9% 1,000 ML 1000 ML IV (01:29)
[2023-09-12 01:32] LABS: Appearance Urine UA CLEAR; Bilirubin Urine UA NEGATIVE (NEGATIVE); Color Urine UA YELLOW; Glucose Urine UA NEGATIVE (Negative); Ketones Urine UA NEGATIVE (NEGATIVE); Leukocyte Esterase Urine UA NEGATIVE (NEGATIVE); Nitrite Urine UA NEGATIVE (Negative); Occult Blood Urine UA TRACE-INTACT (Negative); Protein Urine UA NEGATIVE (Negative)
[2023-09-12 01:33] LABS: pH Urine UA 6.5 (4.5-8.0)
[2023-09-12 01:36] LABS: Add Manual Diff / Slide Review NO; Basophils Absolute Auto 100 /uL (0-100); Basophils Percent Auto 0.9 % (0-2); Eosinophils Absolute Auto 100 /uL (0-450); Eosinophils Percent Auto 0.4 % (2-4); Hemoglobin 11.3 g/dL (12.0-16.0); Lymphocytes Absolute Auto 2200 /uL (1100-4500); Lymphocytes Percent Auto 15.2 % (25-40); Mean Corpuscular HGB Conc 32.4 % (30-36); Mean Corpuscular Hemoglobin 24.7 PG (26-34); Mean Corpuscular Volume 76.2 fL (80-100); Monocytes Absolute Auto 1200 /uL (0-900); Monocytes Percent Auto 8.3 % (3-14); Neutrophils Absolute Auto 10800 /uL (1500-7000); Neutrophils Percent Auto 75.2 % (50-75); Platelet Count 335 X10^3/uL (150-400); Red Blood Cell Count 4.59 X10^6/uL (4.0-5.2); White Blood Cell Count 14.4 X10^3/uL (4.5-11.0)
[2023-09-12 01:41] LABS: Bacteria Urine Few (2-10); Culture Indicated Urine Cult Not Indicated; RBC Urine 0-1/HPF (0-5/HPF); Squamous Epithelial Cell Urine 1-5 /HPF (0-5/HPF); WBC Urine None Seen (0-5/HPF)
[2023-09-12 02:00] LABS: Alanine Aminotransferase 152 IU/L (<35); Albumin 3.6 g/dL (3.5-5.0); Albumin Globulin Ratio 1.1 (1.0-2.8); Alkaline Phosphatase 96 U/L (38-126); Aspartate Aminotransferase 102 IU/L (14-36); BUN Creatinine Ratio 16.9 (6-22); Bilirubin Total 0.5 mg/dL (0.2-1.3); Blood Urea Nitrogen 11 mg/dL (7-17); Calcium 8.7 mg/dL (8.4-10.2); Carbon Dioxide 22 mmol/L (22-32); Chloride 107 mmol/L (98-107); Estimated Glomerular Filt Rate > 60 mL/min (>60); Globulin 3.2 g/dL (1.7-4.1); Glucose 106 mg/dL (70-100); HEMOLYSIS < 15 (0-50); Lipase 55 U/L (23-300); Sodium 135 mmol/L (137-145); Total Protein 6.8 g/dL (6.3-8.2)
[2023-09-12 02:45] VITALS: PULSE 72; RESP 18; O2SAT 98
== END 2023-09-12 02:46 | disposition home or self-care (01) ==
PROVIDERS: Emergency Provider Emergency Medicine
DX: R05.9 Cough, unspecified (principal)
CPT/HCPCS: 36415; 71046; 80053; 81001; 83690; 85025; 96361; 96374; 99284; J1885

== ENCOUNTER → 2023-11-04 13:35 | Outpatient (ROUT) | payer OTHER, SELFPAY ==
[2023-11-04 13:41] LABS: Add Manual Diff / Slide Review NO; Basophils Absolute Auto 100 /uL (0-100); Eosinophils Absolute Auto 200 /uL (0-450); Eosinophils Percent Auto 2.5 % (2-4); Hematocrit 36.4 % (36-46); Hemoglobin 11.8 g/dL (12.0-16.0); Lymphocytes Absolute Auto 2000 /uL (1100-4500); Lymphocytes Percent Auto 24.3 % (25-40); Mean Corpuscular HGB Conc 32.3 % (30-36); Mean Corpuscular Hemoglobin 24.7 PG (26-34); Mean Corpuscular Volume 76.4 fL (80-100); Monocytes Absolute Auto 500 /uL (0-900); Monocytes Percent Auto 5.9 % (3-14); Neutrophils Absolute Auto 5400 /uL (1500-7000); Neutrophils Percent Auto 66.3 % (50-75); Platelet Count 395 X10^3/uL (150-400); Red Blood Cell Count 4.77 X10^6/uL (4.0-5.2); Red Cell Distribution Width 15.4 % (11.6-14.8); White Blood Cell Count 8.2 X10^3/uL (4.5-11.0)
== END ==
PROVIDERS: Visit Provider Physician Assistant
DX: D12.6 Benign neoplasm of colon, unspecified (principal)
CPT/HCPCS: 85025

== ENCOUNTER → 2025-07-08 16:39 | Outpatient (CLI) | payer OTHER, SELFPAY ==
--- NOTE | 2025-07-08 16:43 | DI.RAD.S_ITS ---
PROCEDURE: XR FOOT RT MIN 3V INDICATIONS: PAIN TECHNIQUE: 3 views of the foot were acquired. COMPARISON: None. FINDINGS: Bones: No fractures or dislocations. Well-defined plantar and dorsal calcaneal enthesophytes are seen. Mild osteoarthritic changes are noted throughout right foot joints. No suspicious bony lesions. Soft tissues: No tibiotalar joint effusion. Achilles tendon appears normal. IMPRESSION: No acute right foot fracture or dislocation. Well-defined calcaneal enthesophytes. Mild right foot joint osteoarthritis. Dictated by: Cj Teague M.D. on 07/08/2025 at 19:15 Approved by: Cj Teague M.D. on 07/08/2025 at 19:17
== END ==
LOC: RAD 16:41
PROVIDERS: Referring Provider Physician Assistant; Visit Provider Physician Assistant
DX: M19.071 Primary osteoarthritis, right ankle and foot (principal); M77.31 Calcaneal spur, right foot; M79.674 Pain in right toe(s)
CPT/HCPCS: 73630